=== PATIENT | female | born 1950 | race Caucasian/White ===

== ENCOUNTER 2017-07-28 05:33 | Day surgery (SDC) | payer OTHER ==
[~2017-07-28] VITALS: Ht 167.6 cm; Wt 86.1 kg
[~2017-07-28 05:33] MED LIST: MINOCIN50 MG PO; NORCO 10/3251 TABLET PO
[2017-07-28 05:57] VITALS: BP 182/83
[2017-07-28] MEDS ORDERED: NORCO 10/3251 TABLET PO (12:45)
[2017-07-28 15:39] VITALS: BP 121/66
== END 2017-07-28 15:40 | disposition home or self-care (01) ==
LOC: SDC 05:33 → NUC 07:00 → SDC 15:40
DX: C50.912 Malignant neoplasm of unspecified site of left female breast (principal); Z87.891 Personal history of nicotine dependence; Z17.0 Estrogen receptor positive status [ER+]; Z80.3 Family history of malignant neoplasm of breast
CPT/HCPCS: 78195; 78999; A9541; J0131; J0690; J1100; J1170; J2250; J2405; J3010; J7120; S0020